=== PATIENT | male | born 1990 | race Caucasian/White ===

== ENCOUNTER 2017-07-11 10:43 | Emergency (ER) | payer SELFPAY ==
--- NOTE | 2017-07-11 10:50 | ED.PDOC ---
History of Present Illness - General Chief Complaint: Abdominal Pain Stated Complaint: right flank pain Time Seen by Provider: 07/11/17 10:49 Source: patient Exam Limitations: no limitations - History of Present Illness Initial Comments: Robin Fan 27 y/o male stated that he had been having right flank pains the last 3 days and got worse today.He was seen 3 x at [place] [facility] in the past for blood in urine initally was diagnosed with prostatitis but later on was told he has kidney stone no urology consult was made.He recently move to [place] to live with mom.Denies dysuria,fever ,chills,Diarrhea ,has regular bm Timing/Duration: 1-3 hours Severity: moderate Improving Factors: nothing Worsening Factors: nothing Associated Symptoms: denies symptoms Allergies/Adverse Reactions: Allergies NO KNOWN ALLERGY Allergy (Unverified 05/11/15 19:19) Home Medications: Ambulatory Orders Naproxen [Naprosyn] 500 mg PO BID #10 tab 07/11/17 Tamsulosin HCl [Flomax] 0.4 mg PO DAILY 07/11/17 Tamsulosin HCl [Flomax] 0.4 mg PO DAILY #5 cap 07/11/17 Tramadol HCl 50 mg PO TID #10 tab 07/11/17 Review of Systems - Review of Systems Constitutional: States: no symptoms reported EENTM: States: no symptoms reported Respiratory: States: no symptoms reported Cardiology: States: no symptoms reported Gastrointestinal/Abdominal: States: see HPI Genitourinary: States: see HPI Past Medical History (General) - Patient Medical History Hx Seizures: No Hx Stroke: No Hx Dementia: No Hx Asthma: No Hx of COPD: No Hx Cardiac Disorders: No Hx Congestive Heart Failure: No Hx Pacemaker: No Hx Hypertension: No Hx Thyroid Disease: No Hx Diabetes: No Hx Gastroesophageal Reflux: No Hx Renal Disease: No Hx Cancer: No Hx of HIV: No Hx MRSA: No Hx Other PMH: Yes - kidney stone Surgical History: no surgical history - Vaccination History Hx Influenza Vaccination: No - Social History Hx Tobacco Use: Yes Hx Alcohol Use: No Hx Substance Use: Yes - quit xanax and marijuana a month ago, meth a week ago and hydrocodone 4 day Hx Substance Use Treatment: No Hx Depression: No Family Medical History - Family History Mother Family History: Unknown Hx Family;Other: DAD-kidney stone Physical Exam - Physical Exam General Appearance: Alert, No apparent distress Eye Exam: bilateral normal Ears, Nose, Throat: hearing grossly normal, normal ENT inspection, normal pharynx Neck: non-tender, full range of motion, supple, normal inspection Respiratory: lungs clear, normal breath sounds Cardiovascular/Chest: normal peripheral pulses, regular rate, rhythm, no murmur Peripheral Pulses: radial,right: 2+, radial,left: 2+ Gastrointestinal/Abdominal: normal bowel sounds, non tender, soft, no organomegaly Back Exam: no CVA tenderness, no vertebral tenderness Extremity: no pedal edema, no calf tenderness Neurologic: alert, normal mood/affect, oriented x 3 Skin Exam: normal color, warm/dry Lymphatic: no adenopathy Progress - Progress Progress: 07/11/17 12:01 Vital Signs - 8 hr 07/11/17 11:00 Temperature 95.5 F L Pulse Rate [ 74 Left Brachial] Respiratory 16 Rate Blood Pressure 126/69 [Left Arm] O2 Sat by Pulse 98 Oximetry - Results/Orders Results/Orders: Laboratory Tests 07/11/17 07/11/17 07/11/17 11:06 11:30 11:30 WBC 14.8 H RBC 4.93 Hgb 13.5 L Hct 40.9 L MCV 82.9 MCH 27.3 MCHC 33.0 RDW 13.3 Plt Count 353 MPV 8.6 Absolute Neuts (auto) Not Reportable Absolute Lymphs (auto) Not Reportable Absolute Monos (auto) Not Reportable Absolute Eos (auto) Not Reportable Neutrophils % Not Reportable Neutrophils % (Manual) 77.0 Lymphocytes % Not Reportable Lymphocytes % (Manual) 19.0 Monocytes % Not Reportable Monocytes % (Manual) 4.0 Eosinophils % Not Reportable Basophils % Not Reportable Band Neutrophils 7.0 Platelet Estimate Normal Normal RBC Morphology Normal rbc morph Sodium 138 Potassium 3.7 Chloride 106 Carbon Dioxide 25 Anion Gap 10.7 L BUN 8 Creatinine 0.82 BUN/Creatinine Ratio 9.8 L Random Glucose 91 Serum Osmolality 273.6 L Calcium 9.1 Total Bilirubin < 0.2 L AST 24 ALT 38 Alkaline Phosphatase 69 Serum Total Protein 7.3 Albumin 3.6 Globulin 3.7 H Albumin/Globulin Ratio 1.0 L Urine Color Yellow Urine Appearance Clear Urine pH 6.0 Ur Specific Cameron 1.010 Urine Protein 30 Urine Glucose (UA) Negative Urine Ketones Negative Urine Blood Large H Urine Nitrite Negative Urine Bilirubin Negative Urine Urobilinogen 0.2 Ur Leukocyte Esterase Small H Urine RBC 20-30 H Urine WBC 5-10 H Ur Epithelial Cells 1-3 Amorphous Sediment 1+ Urine Bacteria 1+ Urine Mucus Moderate - EKG/XRAY/CT CT: bilateral no obstructing nephrolithiasis CT Ordered: Yes - Abd/P-3.5 mm left ureteral stone no obstructing Departure - Departure Clinical Impression: Flank pain, acute, Ureteropelvic junction calculus Hematuria Qualifiers: Hematuria type: gross Qualified Code(s): R31.0 - Gross hematuria Time of Disposition: 13:32 Disposition: Discharge to Home or Self Care Departure Forms: ED Discharge - Pt. Copy, Patient Portal Self Enrollment Instructions: DI for Kidney Stones, Kidney Stones -- Adult Diet: other - need to increase oral fluid intake Prescriptions: Naproxen [Naprosyn] 500 mg PO BID #10 tab Tamsulosin HCl [Flomax] 0.4 mg PO DAILY #5 cap Tramadol HCl 50 mg PO TID #10 tab Home Medications: Ambulatory Orders Naproxen [Naprosyn] 500 mg PO BID #10 tab 07/11/17 Tamsulosin HCl [Flomax] 0.4 mg PO DAILY 07/11/17 Tamsulosin HCl [Flomax] 0.4 mg PO DAILY #5 cap 07/11/17 Tramadol HCl 50 mg PO TID #10 tab 07/11/17 Additional Instructions: NEED TO SIGN UP WITH PRIMARY MD [phone]
[2017-07-11 11:04] VITALS: TEMP 95.5
[2017-07-11] MEDS ORDERED: PROMETHAZINE HCL INJ 25 MG/ML VIAL IM ONE (12:10)
[2017-07-11] MEDS ORDERED: MORPHINE SULFATE INJ 10 MG/ML VIAL IV ONE (12:10)
--- NOTE | 2017-07-11 12:29 | CT ---
EXAM DESCRIPTION: Abdoment/Pelvis w/o Contrast CLINICAL HISTORY: hematuria COMPARISON: None. TECHNIQUE: Noncontrast transaxial CT images of the abdomen and pelvis are obtained using renal stone imaging protocol. This exam was performed according to our departmental dose-optimization program, which includes automated exposure control, adjustment of the mA and/or kV according to patient size and/or use of iterative reconstruction technique . FINDINGS: The noncontrast appearance of the lung bases, liver, spleen, pancreas, adrenal glands, and contracted gallbladder are unremarkable. Abdominal vasculature is unremarkable. There is a 1.5 cm calcification in the right renal pelvis without significant hydronephrosis. Tiny 1 to 2 mm punctate calcifications are seen in the midpole posterior calyces of the right kidney. There is a nonobstructing 6 mm calcification in a lower pole calyx of the left kidney. Mild prominence of the right ureter seen without ureteral calcification. There is minimal dilatation of the left ureter. A 3.5 mm calcification seen at the floor the urinary bladder and distal left ureter. Urinary bladder is otherwise unremarkable. Prostate is unremarkable. The appendix is within normal limits. Contracted stomach, small bowel, and colon are unremarkable. 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 There are nonspecific borderline lymph nodes in the mesenteric fat of the right mid abdomen measuring up to 9 mm short axis. IMPRESSION: Nonobstructing bilateral nephrolithiasis is seen. Largest calculus is seen in the right renal pelvis measuring 1.5 cm. There is a 3.5 mm calcification at the left ureterovesical junction of the urinary bladder with minimal left hydronephrosis. Other findings as described in body of the report. Electronically signed by: Jeb Garnett MD 07/11/2017 12:28 PM CDT
[2017-07-11] MEDS ORDERED: LACTATED RINGERS 1,000 ML IVS ONE (12:48)
[2017-07-11 14:32] VITALS: BP 120/75; O2SAT 99
== END 2017-07-11 14:37 | disposition home or self-care (01) ==
LOC: ER 10:43
DX: N20.1 Calculus of ureter (principal); Z87.891 Personal history of nicotine dependence
CPT/HCPCS: 36415; 74176; 80053; 81001; 85025; 87086; J2270; J2550; J7120

== ENCOUNTER 2018-08-29 15:22 | Emergency (ER) | payer SELFPAY ==
[2018-08-29] MEDS ORDERED: KETOROLAC TROMETHAMINE INJ 60 MG/2 ML VIAL IM ONE (15:44)
--- NOTE | 2018-08-29 15:47 | ED.PDOC ---
History of Present Illness - General Chief Complaint: Abdominal Pain Stated Complaint: Right lower abdominal discomfort Time Seen by Provider: 08/29/18 15:43 Information Source: patient Exam Limitations: no limitations - History of Present Illness Initial Comments: patient comes in with moderately severe right lower quadrant pain that is described as sharp, nonradiating, and worsening. Patient states it started yesterday but has gotten significantly worse. Patient had some nausea but no emesis. Last by mouth intake was directly prior to arrival. He is having normal bowel movements and denies diarrhea. He has never had this before. However, he did have kidney stones last year but states this does not feel like when he had the stones. Patient's had no fever, chills, cough or cold symptoms. His past medical history is only positive for nephrolithiasis. Past surgical history is negative. Patient smokes tobacco half a pack every 3 days and marijuana. Patient does not drink or take other illicit substances. Patient has had no trauma or increased activity prior to onset of pain. It does hurt worse when he moves. Abdominal Pain Onset Location: RLQ Pain Radiation: no radiation Quality: moderate, sharpness Timing/Duration: 24 hours, getting worse Improving Factors: nothing Worsening Factors: movement Associated Symptoms: nausea/vomiting Review of Systems - Review of Systems Constitutional: States: no symptoms reported. Denies: chills, fever EENTM: States: no symptoms reported. Denies: eye pain, ear pain, nose congestion, throat pain Respiratory: States: no symptoms reported. Denies: cough, short of breath Cardiology: States: no symptoms reported. Denies: chest pain, edema, palpitations Gastrointestinal/Abdominal: States: see HPI, abdominal pain, nausea. Denies: constipation, diarrhea, vomiting Genitourinary: States: no symptoms reported. Denies: discharge, dysuria, frequency, hematuria Musculoskeletal: States: no symptoms reported Past Medical History (General) - Patient Medical History Hx Seizures: No Hx Stroke: No Hx Dementia: No Hx Asthma: No Hx of COPD: No Hx Cardiac Disorders: No Hx Congestive Heart Failure: No Hx Pacemaker: No Hx Hypertension: No Hx Thyroid Disease: No Hx Diabetes: No Hx Gastroesophageal Reflux: No Hx Renal Disease: No Hx Cancer: No Hx of HIV: No Hx MRSA: No Hx Other PMH: Yes - Nephrolithiasis - Vaccination History Hx Influenza Vaccination: No - Social History Hx Tobacco Use: Yes Hx Alcohol Use: No Hx Substance Use: Yes - quit xanax and marijuana a month ago, meth a week ago and hydrocodone 4 day Hx Substance Use Treatment: No Hx Depression: No Family Medical History - Family History Mother Family History: Unknown Hx Family;Other: DAD-kidney stone Physical Exam - Physical Exam General Appearance: Alert, No apparent distress Eyes, Ears, Nose, Throat Exam: PERRL/EOMI, normal ENT inspection, TMs normal, pharynx normal Neck: non-tender, full range of motion, supple, normal inspection Respiratory: chest non-tender, lungs clear, normal breath sounds, no respiratory distress Cardiovascular/Chest: normal peripheral pulses, regular rate, rhythm, no edema, no gallop, no JVD, no murmur Peripheral Pulses: No deficit Gastrointestinal/Abdominal: soft, tenderness - TTP RLQ with no rebound no guarding, other - non distended with hypoactive BS Neurologic: alert, oriented x 3 Progress - Progress Progress: 08/29/18 17:13 discussed with patient size of stone and that it will not pass on its own. Will call for transfer for Urology - Results/Orders Results/Orders: Patient Name: BASIL VICTORIA Gender: Male Date of : 1990 Referring Physician: ELAINE HOLT Organization: [facility] Accession Number: [id number] Requested Date: August 29, 2018 15:43 Report Status: Final Requested Procedure: 1 Procedure Description: Abdoment/Pelvis w/o Contrast Modality: CT Findings Reporting MD: Cuba Willoughby Fellow MD: Not available Dictation Time: Knock Out Hand: Not available Network Technical Analyst Date: EXAM DESCRIPTION: Abdoment/Pelvis w/o Contrast CLINICAL HISTORY: 28 years Male, RLQ pain/?appy hx nephrolithiasis COMPARISON: July 11, 2017. TECHNIQUE: Contiguous 3 mm axial images were obtained from the lung bases to the level of proximal femora without the administration of intravenous or oral contrast. Sagittal and coronal reconstructions were reviewed. FINDINGS: Evaluation of the urinary system: Right kidney: A 1.7 cm calcified partially obstructing stone is noted at the ureteropelvic junction with interval change in the position in comparison to prior CT dated July 11, 2017. A second nonobstructing 5 mm intrarenal stone is noted in the upper pole and another punctate 3 mm nonobstructing stone in the interpolar region. Interval development of mild hydronephrosis is noted. Mild hydroureter is also noted along the entire course of the ureter with no evidence of obstructing stones. Mild periureteral stranding is noted surrounding the proximal ureter. No evidence of perinephric fluid collections or stranding. Left kidney: A 7 mm nonobstructing calcified stone at the left ureteropelvic junction with the interval change in the position in comparison to the prior CT. Mild fullness of the ureteropelvic junction with no evidence of hydronephrosis, hydroureter, perinephric stranding or fluid collections. The visualized lower thorax appears grossly unremarkable with no pleural or pericardial effusion. Limited evaluation of the solid abdominal organs due to lack of intravenous contrast. The liver appears grossly unremarkable with no intrahepatic ductal dilatation. The gallbladder is a minimally distended and demonstrates interval development of a small calcified stone within the lumen with no evidence of pericholecystic fluid or fat stranding. The spleen, pancreas and both adrenal glands appear grossly unremarkable. [employer]. [address] [place] [address] T [phone] F [phone] [email or web address] - Report exported on Aug 29, 2018 16:20:48 -0600 - Page 2 of 2 The distal esophagus and the stomach appear grossly unremarkable. The small and large bowel loops appear grossly unremarkable with no abnormal dilatation or wall thickening. Few scattered diverticula are noted throughout the colon with no evidence of acute diverticulitis. The appendix is well-visualized with the no surrounding inflammatory changes. No enlarged abdominal or retroperitoneal lymphadenopathy. No free intraperitoneal air or fluid. The urinary bladder is well-distended and appears grossly unremarkable. The prostate appears grossly unremarkable. No free fluid in the pelvis. Review of the bone windows demonstrate no acute osseous abnormality. IMPRESSION: 1. Persistent large 1.7 cm partially obstructing calcified stone at the right ureteropelvic junction with mild hydronephrosis and mild hydroureter with mild periureteral stranding surrounding the proximal ureter is concerning for an acute obstruction. Interval change in the position of the stone noted within proximal migration in comparison to recent CT dated July 11, 2017. 2. 2 other nonobstructing calcified intrarenal stones are noted in the right kidney measuring up to 5 mm. 3. Again noted is a 7 mm nonobstructing calcified stone at the left ureteropelvic junction with no evidence of hydronephrosis, hydroureter are perinephric stranding. However interval proximal migration of the stone noted in comparison to prior exam. 4. No other acute intra-abdominal process. 5. Cholelithiasis with no evidence of acute cholecystitis. This exam was performed according to our departmental dose-optimization program, which includes automated exposure control, adjustment of the mA and/or kV according to patient size and/or use of iterative reconstruction technique. 08/29/18 15:44 UA [URINALYSIS] Stat 08/29/18 16:21 Sodium Chloride 0.9% 1000ML [Ns 1000 ml] 1,000 ml IVS ONCE Laboratory Results WBC 10.4 K/mm3 (4.8-10.8) 08/29/18 16:11 RBC 4.88 M/mm3 (4.70-6.10) 08/29/18 16:11 Hgb 14.1 gm/dL (14.0-18.0) 08/29/18 16:11 Hct 42.9 % (42.0-52.0) 08/29/18 16:11 MCV 88.0 fl (80.0-94.0) 08/29/18 16:11 MCH 28.9 pg (27.0-31.0) 08/29/18 16:11 MCHC 32.9 g/dL (33.0-37.0) L 08/29/18 16:11 RDW 13.1 % (11.5-14.5) 08/29/18 16:11 Plt Count 280 K/mm3 (130-400) 08/29/18 16:11 MPV 9.5 fl (7.40-10.4) 08/29/18 16:11 Absolute Neuts (auto) 6.60 K/uL (1.8-6.8) 08/29/18 16:11 Absolute Lymphs (auto) 3.00 K/uL (1.0-3.4) 08/29/18 16:11 Absolute Monos (auto) 0.50 K/uL (0.2-0.8) 08/29/18 16:11 Absolute Eos (auto) 0.10 K/uL (0.0-0.4) 08/29/18 16:11 Absolute Basos (auto) 0.10 K/uL (0.0-0.1) 08/29/18 16:11 Neutrophils % 63.8 % (42.0-78.0) 08/29/18 16:11 Lymphocytes % 29.1 % (20.0-50.0) 08/29/18 16:11 Monocytes % 5.2 % (2.0-9.0) 08/29/18 16:11 Eosinophils % 1.3 % (1.0-5.0) 08/29/18 16:11 Basophils % 0.6 % (0.0-2.0) 08/29/18 16:11 Sodium 138 mmol/L (135-145) 08/29/18 16:11 Potassium 3.9 mmol/L (3.6-5.0) 08/29/18 16:11 Chloride 105 mmol/L (101-111) 08/29/18 16:11 Carbon Dioxide 25 mmol/L (21-31) 08/29/18 16:11 Anion Gap 11.9 (12-18) L 08/29/18 16:11 BUN 16 mg/dL (7-18) 08/29/18 16:11 Creatinine 0.82 mg/dL (0.6-1.3) 08/29/18 16:11 BUN/Creatinine Ratio 19.5 (10-20) 08/29/18 16:11 Random Glucose 71 mg/dL (70-105) 08/29/18 16:11 Serum Osmolality 275.3 mOsm/L (275-295) 08/29/18 16:11 Lactic Acid 0.9 mmol/L (0.5-2.2) 08/29/18 16:11 Calcium 9.5 mg/dL (8.4-10.2) 08/29/18 16:11 Total Bilirubin 0.3 mg/dL (0.2-1.0) 08/29/18 16:11 AST 19 IU/L (10-42) 08/29/18 16:11 ALT 29 IU/L (10-60) 08/29/18 16:11 Alkaline Phosphatase 80 IU/L (42-121) 08/29/18 16:11 Serum Total Protein 7.9 gm/dL (6.4-8.2) 08/29/18 16:11 Albumin 4.3 g/dl (3.2-5.5) 08/29/18 16:11 Globulin 3.6 gm/dL (2.3-3.5) H 08/29/18 16:11 Albumin/Globulin Ratio 1.2 (1.1-1.9) 08/29/18 16:11 Amylase 62 U/L (28-100) 08/29/18 16:11 Lipase 21 U/L (22-51) L 08/29/18 16:11 Departure - Departure Clinical Impression: Ureteropelvic junction calculus Disposition: Transfer to Hospital Condition: Fair Departure Forms: ED Discharge - Pt. Copy, Patient Portal Self Enrollment Instructions: DI for Abdominal Pain-Adult Home Medications: Ambulatory Orders Naproxen [Naprosyn] 500 mg PO BID #10 tab 07/11/17 Tamsulosin HCl [Flomax] 0.4 mg PO DAILY 07/11/17 Tamsulosin HCl [Flomax] 0.4 mg PO DAILY #5 cap 07/11/17 Tramadol HCl 50 mg PO TID #10 tab 07/11/17 Transfer to Outside Facility - Transfer Information Accepting Facility: [facility] Reason for Transfer: specialized care not available
[2018-08-29 16:04] VITALS: TEMP 99.2; O2SAT 99
--- NOTE | 2018-08-29 16:17 | CT ---
EXAM DESCRIPTION: Abdoment/Pelvis w/o Contrast CLINICAL HISTORY: 28 years Male, RLQ pain/?appy hx nephrolithiasis COMPARISON: July 11, 2017. TECHNIQUE: Contiguous 3 mm axial images were obtained from the lung bases to the level of proximal femora without the administration of intravenous or oral contrast. Sagittal and coronal reconstructions were reviewed. FINDINGS: Evaluation of the urinary system: Right kidney: A 1.7 cm calcified partially obstructing stone is noted at the ureteropelvic junction with interval change in the position in comparison to prior CT dated July 11, 2017. A second nonobstructing 5 mm intrarenal stone is noted in the upper pole and another punctate 3 mm nonobstructing stone in the interpolar region. Interval development of mild hydronephrosis is noted. Mild hydroureter is also noted along the entire course of the ureter with no evidence of obstructing stones. Mild periureteral stranding is noted surrounding the proximal ureter. No evidence of perinephric fluid collections or stranding. Left kidney: A 7 mm nonobstructing calcified stone at the left ureteropelvic junction with the interval change in the position in comparison to the prior CT. Mild fullness of the ureteropelvic junction with no evidence of hydronephrosis, hydroureter, perinephric stranding or fluid collections. The visualized lower thorax appears grossly unremarkable with no pleural or pericardial effusion. Limited evaluation of the solid abdominal organs due to lack of intravenous contrast. The liver appears grossly unremarkable with no intrahepatic ductal dilatation. The gallbladder is a minimally distended and demonstrates interval development of a small calcified stone within the lumen with no evidence of pericholecystic fluid or fat stranding. The spleen, pancreas and both adrenal glands appear grossly unremarkable. The distal esophagus and the stomach appear grossly unremarkable. The small and large bowel loops appear grossly unremarkable with no abnormal dilatation or wall thickening. Few scattered diverticula are noted throughout the colon with no evidence of acute diverticulitis. The appendix is well-visualized with the no surrounding inflammatory changes. No enlarged abdominal or retroperitoneal lymphadenopathy. No free intraperitoneal air or fluid. The urinary bladder is well-distended and appears grossly unremarkable. The prostate appears grossly unremarkable. No free fluid in the pelvis. Review of the bone windows demonstrate no acute osseous abnormality. IMPRESSION: 1. Persistent large 1.7 cm partially obstructing calcified stone at the right ureteropelvic junction with mild hydronephrosis and mild hydroureter with mild periureteral stranding surrounding the proximal ureter is concerning for an acute obstruction. Interval change in the position of the stone noted within proximal migration in comparison to recent CT dated July 11, 2017. 2. 2 other nonobstructing calcified intrarenal stones are noted in the right kidney measuring up to 5 mm. 3. Again noted is a 7 mm nonobstructing calcified stone at the left ureteropelvic junction with no evidence of hydronephrosis, hydroureter are perinephric stranding. However interval proximal migration of the stone noted in comparison to prior exam. 4. No other acute intra-abdominal process. 5. Cholelithiasis with no evidence of acute cholecystitis. This exam was performed according to our departmental dose-optimization program, which includes automated exposure control, adjustment of the mA and/or kV according to patient size and/or use of iterative reconstruction technique. Electronically signed by: Cuba Willoughby MD 08/29/2018 4:15 PM [employer]
[2018-08-29] MEDS ORDERED: TAMSULOSIN 0.4 MG CAP PO ONE (16:21)
[2018-08-29] MEDS ORDERED: SODIUM CHLORIDE 0.9% 1000ML 1,000 ML IVS ONE (16:21)
[2018-08-29 17:39] VITALS: BP 122/85
== END 2018-08-29 17:45 | disposition short-term general hospital (02) ==
LOC: ER 15:22
DX: N13.2 Hydronephrosis with renal and ureteral calculous obstruction (principal); K80.20 Calculus of gallbladder without cholecystitis without obstruction; F17.210 Nicotine dependence, cigarettes, uncomplicated
CPT/HCPCS: 36415; 74176; 80053; 81001; 82150; 83605; 83690; 85025; J1885; J7030

== ENCOUNTER → 2018-09-05 | Outpatient (CLI) | payer SELFPAY | LOC: YCFC.O 14:46 | DX: N10 Acute pyelonephritis (principal) ==

== ENCOUNTER 2018-09-06 12:12 | Emergency (ER) | payer SELFPAY ==
[2018-09-06 12:23] VITALS: TEMP 97.2
[2018-09-06] MEDS ORDERED: KETOROLAC TROMETHAMINE INJ 30 MG/ML VIAL IM ONE (12:34)
[2018-09-06] MEDS ORDERED: ONDANSETRON ODT 8 MG TAB SL ONE (12:35)
[2018-09-06] MEDS ORDERED: SODIUM CHLORIDE 0.9% 1000ML 1,000 ML IVS ONE (13:21)
[2018-09-06] MEDS ORDERED: cefTRIAXone SODIUM 1 GM in SODIUM CHL 0.9% 50ML MIN-BAG+ 50 ML IVPB ONE (13:28)
--- NOTE | 2018-09-06 13:43 | CT ---
EXAM DESCRIPTION: Abdoment/Pelvis w/o Contrast CLINICAL HISTORY: severe right abd/flank pain s/p ureteral stent 6d COMPARISON: August 29, 2018 TECHNIQUE: Noncontrast transaxial CT images of the abdomen and pelvis are obtained. This exam was performed according to our departmental dose-optimization program, which includes automated exposure control, adjustment of the mA and/or kV according to patient size and/or use of iterative reconstruction technique . FINDINGS: Visualized lung bases are unremarkable. Given the limitations of a noncontrast exam the liver, spleen, pancreas, adrenal glands, gallbladder, and abdominal vasculature are unremarkable. No bowel obstruction or inflammatory changes. The appendix is normal. No free intraperitoneal air or abnormal drainable fluid collections are seen. Interval placement of bilateral ureteral stents are seen. Proximal pigtail component of the left ureteral stent is seen in the proximal ureter. The distal pigtail component of the ureteral stents looped around each other in the urinary bladder. The large calculus in the right renal pelvis seen on previous examination is no longer identified, but there are multiple new fragments in mid to lower pole calyces of the right kidney suggesting fragmentation of the renal pelvis calculus. The calcification in the left renal pelvis seen on previous examination is now identified in a major calyx of the mid to lower pole left kidney without obvious obstruction. Multiple calcifications adjacent to the ureteral stent in the mid right ureter measure 14 x 6 mm. Smaller calcification adjacent to the distal ureteral stent on the right measures 5 mm. No hydronephrosis. No significant calcifications are seen along the left ureteral stent. Urinary bladder is contracted and not well evaluated. No significant hydronephrosis. Osseous structures show no aggressive bony lesions. 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 IMPRESSION: Interval placement of bilateral ureteral stents with presumed lithotripsy and fragmentation of the right renal pelvis calculus. Calcifications are seen in the mid and distal right ureter adjacent to the ureteral stent without evidence of ureteral dilatation or obstruction. Migration of the calcification seen in the left renal pelvis on previous exam and to a mid to lower pole major calyx. Electronically signed by: Jeb Garnett MD 09/06/2018 1:42 PM IRRIGATION WORKER
[2018-09-06] MEDS ORDERED: cefTRIAXone SODIUM 1 GM VIAL ONE (13:49)
[2018-09-06] MEDS ORDERED: SODIUM CHL 0.9% 50ML MIN-BAG+ 50 ML IVPB ONE (13:50)
[2018-09-06] MEDS ORDERED: HYDROcodone 10MG/APAP 325MG 1 EA TAB PO ONE (14:39)
--- NOTE | 2018-09-06 15:22 | ED.PDOC ---
History of Present Illness - General Chief Complaint: Problem Stated Complaint: right groin pain Time Seen by Provider: 09/06/18 12:33 Source: patient Exam Limitations: no limitations - History of Present Illness Initial Comments: the patient is a 28-year-old male presenting to the emergency room secondary to pain from his ureterolithiasis on the right. He is having urinary frequency and pain down into his penis as well as right mid to lower abdominal pain. No fevers. He had bilateral ureteral stents placed approximately [address] Hess in [place]. Pain has been progressively getting a little worse over the last few days. No definite fevers. Vital signs are stable. He is in obvious distress and is throwing up. Timing/Duration: unsure Severity: severe Improving Factors: nothing Worsening Factors: nothing Allergies/Adverse Reactions: Allergies NO KNOWN ALLERGY Allergy (Unverified 05/11/15 19:19) Home Medications: Ambulatory Orders Naproxen [Naprosyn] 500 mg PO BID #10 tab 07/11/17 Tamsulosin HCl [Flomax] 0.4 mg PO DAILY 07/11/17 Tamsulosin HCl [Flomax] 0.4 mg PO DAILY #5 cap 07/11/17 Tramadol HCl 50 mg PO TID #10 tab 07/11/17 Ciprofloxacin [Cipro] 500 mg PO BID #14 tab 09/06/18 Promethazine HCl 25 mg PO Q6H PRN #10 tab 09/06/18 Tramadol HCl 50 mg PO Q4H PRN #20 tab 09/06/18 Review of Systems - Review of Systems Constitutional: States: malaise EENTM: States: no symptoms reported Respiratory: States: no symptoms reported Cardiology: States: no symptoms reported Gastrointestinal/Abdominal: States: abdominal pain, nausea, vomiting Genitourinary: States: dysuria, frequency Musculoskeletal: States: no symptoms reported Skin: States: no symptoms reported Neurological: States: anxiety Endocrine: States: no symptoms reported All other Systems: No Change from Baseline Past Medical History (General) - Patient Medical History Hx Seizures: No Hx Stroke: No Hx Dementia: No Hx Asthma: No Hx of COPD: No Hx Cardiac Disorders: No Hx Congestive Heart Failure: No Hx Pacemaker: No Hx Hypertension: No Hx Thyroid Disease: No Hx Diabetes: No Hx Gastroesophageal Reflux: No Hx Renal Disease: No Hx Cancer: No Hx of HIV: No Hx MRSA: No - Vaccination History Hx Tetanus, Diphtheria Vaccination: No Hx Influenza Vaccination: Yes Hx Pneumococcal Vaccination: No - Social History Hx Tobacco Use: Yes Hx Alcohol Use: No Hx Substance Use: Yes - quit xanax and marijuana a month ago, meth a week ago and hydrocodone 4 day Hx Substance Use Treatment: No Hx Depression: No Family Medical History - Family History Mother Family History: Unknown Hx Family;Other: DAD-kidney stone Physical Exam - Physical Exam General Appearance: Alert, Anxious, Obvious distress Eye Exam: bilateral normal Ears, Nose, Throat: hearing grossly normal, normal ENT inspection, normal pharynx Neck: full range of motion, supple Respiratory: lungs clear, normal breath sounds, no respiratory distress, no accessory muscle use Cardiovascular/Chest: normal peripheral pulses, regular rate, rhythm, no edema Peripheral Pulses: radial,right: 2+, radial,left: 2+, dorsalis pedis,right: 2+, dorsalis pedis,left: 2+ Gastrointestinal/Abdominal: non tender, soft Rectal Exam: deferred Back Exam: normal inspection, no CVA tenderness Extremity: normal range of motion, non-tender, normal inspection, no pedal edema , normal capillary refill Neurologic: clinical staff pharmacist II-XII nml as tested, alert, normal mood/affect, oriented x 3 Skin Exam: normal color Comments: Vital Signs - 24 hr 09/06/18 12:18 Temperature 97.2 F L Pulse Rate [ 87 Right Brachial] Respiratory 20 Rate Blood Pressure 142/78 [Right Arm] O2 Sat by Pulse 98 Oximetry Progress - Progress Progress: 09/06/18 15:22 the patient's 28-year-old male presenting secondary to pain from his right sided ureterolithiasis. He does have stents present. He does have some bacteria on his urinalysis. I did discuss the patient with Dr. Hess who wants to see him tomorrow at 10 AM likely for another procedure. Disc of the CT scan will be sent with the patient to his appointment tomorrow. The patient is to continue his medication started by urology. He is going to be placed on oral ciprofloxacin and he will also be written for tramadol and Phenergan as needed. ER warnings were given. He did receive a liter of fluids and a dose of antibiotics here today. - Results/Orders Results/Orders: Laboratory Tests 09/06/18 09/06/18 09/06/18 12:50 13:40 13:40 WBC 9.7 RBC 4.92 Hgb 14.3 Hct 43.8 MCV 89.1 MCH 29.1 MCHC 32.6 L RDW 13.3 Plt Count 317 MPV 10.0 Absolute Neuts (auto) 7.10 H Absolute Lymphs (auto) 1.70 Absolute Monos (auto) 0.40 Absolute Eos (auto) 0.30 Absolute Basos (auto) 0.10 Neutrophils % 73.9 Lymphocytes % 18.0 L Monocytes % 3.7 Eosinophils % 3.6 Basophils % 0.8 Sodium 135 Potassium 4.8 Chloride 106 Carbon Dioxide 24 Anion Gap 9.8 L BUN 11 Creatinine 0.93 BUN/Creatinine Ratio 11.8 Random Glucose 92 Serum Osmolality 269.1 L Calcium 9.3 Total Bilirubin 0.4 AST 20 ALT 21 Alkaline Phosphatase 77 Serum Total Protein 8.0 Albumin 4.2 Globulin 3.8 H Albumin/Globulin Ratio 1.1 Urine Color Brown Urine Appearance Cloudy Urine pH 6.0 Ur Specific [place] >= 1.030 Urine Protein >=300 H Urine Glucose (UA) Negative Urine Ketones Negative Urine Blood Large H Urine Nitrite Negative Urine Bilirubin Small H Urine Urobilinogen 0.2 Ur Leukocyte Esterase Small H Urine RBC Tntc H Urine WBC Obscured by rbc's H Ur Epithelial Cells 0 Urine Bacteria 2+ H CT scan of abdomen and pelvis without contrast shows debris proximal to the stents on the right. No hydronephrosis. See report for full details. Departure - Departure Clinical Impression: Calcium ureterolithiasis Disposition: Discharge to Home or Self Care Condition: Fair Departure Forms: ED Discharge - Pt. Copy, Patient Portal Self Enrollment Instructions: DI for Kidney Stones Diet: regular diet Activity: increase activity as tolerated Prescriptions: Ciprofloxacin [Cipro] 500 mg PO BID #14 tab Promethazine HCl 25 mg PO Q6H PRN #10 tab PRN Reason: Vomiting Tramadol HCl 50 mg PO Q4H PRN #20 tab PRN Reason: Moderate To Severe Pain Home Medications: Ambulatory Orders Naproxen [Naprosyn] 500 mg PO BID #10 tab 07/11/17 Tamsulosin HCl [Flomax] 0.4 mg PO DAILY 07/11/17 Tamsulosin HCl [Flomax] 0.4 mg PO DAILY #5 cap 07/11/17 Tramadol HCl 50 mg PO TID #10 tab 07/11/17 Ciprofloxacin [Cipro] 500 mg PO BID #14 tab 09/06/18 Promethazine HCl 25 mg PO Q6H PRN #10 tab 09/06/18 Tramadol HCl 50 mg PO Q4H PRN #20 tab 09/06/18 Additional Instructions: the patient's 28-year-old male presenting secondary to pain from his right sided ureterolithiasis. He does have stents present. He does have some bacteria on his urinalysis. I did discuss the patient with Dr. Hess who wants to see him tomorrow at 10 AM likely for another procedure. Disc of the CT scan will be sent with the patient to his appointment tomorrow. The patient is to continue his medication started by urology. He is going to be placed on oral ciprofloxacin and he will also be written for tramadol and Phenergan as needed. ER warnings were given. He did receive a liter of fluids and a dose of antibiotics here today. the patient is to have nothing to eat after midnight and nothing to drink after 6 AM, in case a procedure is going to happen later tomorrow morning.
[2018-09-06 15:41] VITALS: BP 135/75; O2SAT 96
== END 2018-09-06 15:35 | disposition home or self-care (01) ==
LOC: ER 12:12
DX: N20.1 Calculus of ureter (principal); R11.10 Vomiting, unspecified; Z87.891 Personal history of nicotine dependence
CPT/HCPCS: 36415; 74176; 80053; 81001; 85025; 87086; J0696; J1885; J7030; J7050

== ENCOUNTER 2018-09-09 22:21 | Emergency (ER) | payer SELFPAY ==
[2018-09-09 22:34] VITALS: TEMP 98.8
[2018-09-09] MEDS: MORPHINE SULFATE INJ 10 MG/ML VIAL IM ONE (22:34)
[2018-09-09] MEDS: diazePAM 2 MG TAB PO ONE (22:42)
[2018-09-09] MEDS: ONDANSETRON ODT 8 MG TAB SL ONE (22:49)
[2018-09-09] MEDS: KETOROLAC TROMETHAMINE INJ 30 MG/ML VIAL IM ONE (23:04)
[2018-09-09] MEDS: HYDROcodone 10MG/APAP 325MG 1 EA TAB PO ONE (23:04)
[2018-09-09 23:29] VITALS: BP 112/58; O2SAT 99
--- NOTE | 2018-09-09 23:53 | ED.PDOC ---
History of Present Illness - General Chief Complaint: Problem Stated Complaint: right flank pain, S/P stent placement Time Seen by Provider: 09/09/18 22:26 Source: patient - History of Present Illness Initial Comments: the patient is a 28-year-old male presenting back to the emergency room the third time this week secondary to his right flank pain. He has bilateral ureteral stents but the stone that was busted up on the right side has not completely passed. He is scheduled with Dr. Hess, neurology and 36 hours to have another procedure. The medications that he has at home was just not cutting it for the pain. He has had a couple of episodes of nausea and vomiting. He is rating the pain as 10 out of 10. No fever. No evidence of any renal failure. He saw his urologist 2 days ago. Timing/Duration: 1 week, constant, getting worse Severity: severe Improving Factors: nothing Worsening Factors: nothing Associated Symptoms: nausea/vomiting Allergies/Adverse Reactions: Allergies NO KNOWN ALLERGY Allergy (Verified 09/09/18 22:29) Home Medications: Ambulatory Orders Naproxen [Naprosyn] 500 mg PO BID #10 tab 07/11/17 Tamsulosin HCl [Flomax] 0.4 mg PO DAILY #5 cap 07/11/17 Tramadol HCl 50 mg PO Q4H PRN #20 tab 09/06/18 Review of Systems - Review of Systems Constitutional: States: no symptoms reported EENTM: States: no symptoms reported Respiratory: States: no symptoms reported Cardiology: States: no symptoms reported Gastrointestinal/Abdominal: States: nausea Genitourinary: States: no symptoms reported Musculoskeletal: States: back pain Skin: States: no symptoms reported Neurological: States: no symptoms reported Endocrine: States: no symptoms reported All other Systems: No Change from Baseline Past Medical History (General) - Patient Medical History Hx Seizures: No Hx Stroke: No Hx Dementia: No Hx Asthma: No Hx of COPD: No Hx Cardiac Disorders: No Hx Congestive Heart Failure: No Hx Pacemaker: No Hx Hypertension: No Hx Thyroid Disease: No Hx Diabetes: No Hx Gastroesophageal Reflux: No Hx Renal Disease: Yes - kidney stones Hx Cancer: No Hx of HIV: No Hx Hepatitis C: No Hx MRSA: No - Vaccination History Hx Tetanus, Diphtheria Vaccination: No Hx Influenza Vaccination: Yes Hx Pneumococcal Vaccination: No - Social History Hx Tobacco Use: Yes Hx Alcohol Use: No Hx Substance Use: Yes - quit xanax and marijuana a month ago, meth a week ago and hydrocodone 4 day Hx Substance Use Treatment: No Hx Depression: No Family Medical History - Family History Mother Family History: Unknown Hx Family;Other: DAD-kidney stone Physical Exam - Physical Exam General Appearance: Alert, Obvious distress Eye Exam: bilateral normal Ears, Nose, Throat: hearing grossly normal, normal ENT inspection, normal pharynx Neck: full range of motion, supple Respiratory: lungs clear, normal breath sounds, no respiratory distress, no accessory muscle use Cardiovascular/Chest: normal peripheral pulses, regular rate, rhythm, no edema Peripheral Pulses: radial,right: 2+, radial,left: 2+ Gastrointestinal/Abdominal: non tender, soft Rectal Exam: deferred Back Exam: CVA tenderness (R) Extremity: non-tender, normal inspection, no pedal edema, normal capillary refill Neurologic: property maintenance technician II-XII nml as tested, alert, normal mood/affect, oriented x 3 Skin Exam: normal color Comments: Vital Signs - 24 hr 09/09/18 09/09/18 22:26 23:28 Temperature 98.8 F Pulse Rate [ 97 H 93 H monitor] Respiratory 20 18 Rate Blood Pressure 137/73 112/58 [Left Arm] O2 Sat by Pulse 100 99 Oximetry Progress - Progress Progress: 09/09/18 23:53 the patient is a 28-year-old male with ureteral stents and as well as some debris from a previous stone proximal to the stents on the right. This is causing him significant discomfort. He is scheduled with urology on Monday to have another procedure on that side. He received pain medications here tonight. He does need to contact his urologist tomorrow morning to let him know what is going on. ER warnings were given. Departure - Departure Clinical Impression: Calcium ureterolithiasis Disposition: Discharge to Home or Self Care Condition: Fair Departure Forms: ED Discharge - Pt. Copy, Patient Portal Self Enrollment Instructions: DI for Kidney Stones Diet: regular diet Activity: increase activity as tolerated Home Medications: Ambulatory Orders Naproxen [Naprosyn] 500 mg PO BID #10 tab 07/11/17 Tamsulosin HCl [Flomax] 0.4 mg PO DAILY #5 cap 07/11/17 Tramadol HCl 50 mg PO Q4H PRN #20 tab 12/06/18 Additional Instructions: the patient is a 28-year-old male with ureteral stents and as well as some debris from a previous stone proximal to the stents on the right. This is causing him significant discomfort. He is scheduled with urology on Monday to have another procedure on that side. He received pain medications here tonight. He does need to contact his urologist tomorrow morning to let him know what is going on. ER warnings were given.
== END 2018-09-10 00:05 | disposition home or self-care (01) ==
LOC: ER 22:21
DX: N20.1 Calculus of ureter (principal); Z98.890 Other specified postprocedural states; Z87.891 Personal history of nicotine dependence
CPT/HCPCS: J1885; J2270

== ENCOUNTER 2018-09-11 03:24 | Emergency (ER) | payer SELFPAY ==
--- NOTE | 2018-09-11 03:56 | ED.PDOC ---
History of Present Illness - General Chief Complaint: Problem Stated Complaint: right flank pain Time Seen by Provider: 09/11/18 03:42 Source: patient Exam Limitations: no limitations - History of Present Illness Initial Comments: Robin Fan 28 y/o male with history of right ureterolithiasis stated that he had ureteral stent placed 8 days ago by Urologist Dr. Hess and was scheduled for removal today 11 Sep 2018 at 12 noon but came to ER with onset of sharp right flank pain radiating to right groin with hematuria 1-2 hours ago.No fever or chills. Timing/Duration: just prior to arrival Quality: moderate, sharpness, steady Radiation: right flank Activites at Onset: none Sexual intercourse history: other - none recently Improving Factors: nothing Worsening Factors: nothing Associated Symptoms: other - see hpi Allergies/Adverse Reactions: Allergies NO KNOWN ALLERGY Allergy (Verified 09/11/18 03:36) Home Medications: Ambulatory Orders Antibiotic 1 tablet PO DAILY 09/11/18 Blue Pill 1 tablet PO DAILY 09/11/18 Purple Pill 1 tablet PO DAILY 09/11/18 Review of Systems - Review of Systems Genitourinary: States: see HPI, hematuria All other Systems: Reviewed and Negative, No Change from Baseline Past Medical History (General) - Patient Medical History Hx Seizures: No Hx Stroke: No Hx Dementia: No Hx Asthma: No Hx of COPD: No Hx Cardiac Disorders: No Hx Congestive Heart Failure: No Hx Pacemaker: No Hx Hypertension: No Hx Thyroid Disease: No Hx Diabetes: No Hx Gastroesophageal Reflux: No Hx Renal Disease: Yes - kidney stones, stent placement Hx Cancer: No Hx of HIV: No Hx Hepatitis C: No Hx MRSA: No - Vaccination History Hx Tetanus, Diphtheria Vaccination: No Hx Influenza Vaccination: Yes Hx Pneumococcal Vaccination: No - Social History Hx Tobacco Use: Yes Hx Alcohol Use: No Hx Substance Use: Yes - quit xanax and marijuana a month ago, meth a week ago and hydrocodone 4 day Hx Substance Use Treatment: No Hx Depression: No Family Medical History - Family History Mother Family History: Unknown Hx Family;Other: DAD-kidney stone Physical Exam - Physical Exam General Appearance: Alert, Anxious, No apparent distress Eyes, Ears, Nose, Throat Exam: normal ENT inspection Neck: supple, normal inspection Cardiovascular/Respiratory: regular rate, rhythm, no M/R/G, normal peripheral pulses, no JVD Gastrointestinal/Abdominal: non tender, soft Back Exam: normal inspection, no CVA tenderness, no vertebral tenderness Extremity: no pedal edema, no calf tenderness Neurologic: alert, oriented x 3 Progress - Progress Progress: 09/11/18 03:59 Vital Signs - 8 hr 09/11/18 03:27 Temperature 98.1 F Pulse Rate [ 85 monitor] Respiratory 20 Rate Blood Pressure 154/81 [Right Arm] O2 Sat by Pulse 100 Oximetry - Results/Orders Results/Orders: 09/11/18 04:00 IV Care:Saline Lock per Protoc QSHIFT Laboratory Results - last 24 hr 09/11/18 09/11/18 04:00 04:00 WBC 7.1 RBC 4.25 L Hgb 12.4 L Hct 37.6 L MCV 88.6 MCH 29.1 MCHC 33.0 RDW 13.3 Plt Count 251 MPV 9.9 Absolute Neuts (auto) 4.30 Absolute Lymphs (auto) 1.70 Absolute Monos (auto) 0.50 Absolute Eos (auto) 0.60 H Absolute Basos (auto) 0.10 Neutrophils % 59.6 Lymphocytes % 23.5 Monocytes % 7.0 Eosinophils % 9.1 H Basophils % 0.8 Sodium 138 Potassium 4.0 Chloride 109 Carbon Dioxide 24 Anion Gap 9.0 L BUN 18 Creatinine 0.85 BUN/Creatinine Ratio 21.2 H Random Glucose 94 Serum Osmolality 277.3 Calcium 8.6 Discuss test result with patient and advised to keep his scheduled appoint with Urologist today. Departure - Departure Clinical Impression: Flank pain, Nephrolithiasis, History of ureter stent Time of Disposition: 05:08 Disposition: Discharge to Home or Self Care Departure Forms: ED Discharge - Pt. Copy, Patient Portal Self Enrollment Home Medications: Ambulatory Orders Antibiotic 1 tablet PO DAILY 09/11/18 Blue Pill 1 tablet PO DAILY 09/11/18 Purple Pill 1 tablet PO DAILY 09/11/18 Additional Instructions: Keep appointment with Urologist Dr. Hess today at 12 N
[2018-09-11] MEDS ORDERED: LACTATED RINGERS 1,000 ML IVS ONE (04:00)
[2018-09-11] MEDS ORDERED: KETOROLAC TROMETHAMINE INJ 30 MG/ML VIAL IV ONE (04:00)
[2018-09-11] MEDS ORDERED: MORPHINE SULFATE INJ 10 MG/ML VIAL IV ONE (04:00)
[2018-09-11] MEDS ORDERED: PROCHLORPERAZINE INJ 10 MG/2 ML VIAL IV ONE (04:00)
--- NOTE | 2018-09-11 04:23 | RAD ---
ABDOMEN, SINGLE VIEW. 09/11/2018 CLINICAL HISTORY: Status post bilateral ureteral stent placement for renal stones. COMPARISON: CT abdomen and pelvis without contrast 09/06/2018. TECHNIQUE: Two AP images of the abdomen. FINDINGS: There are bilateral ureteral stents. The proximal end of the both stents is in the expected position of the right and left renal pelvis. The distal end of both stents appears to be in the region of the bladder within the pelvis. There is no calcification seen within the region of the left kidney or pelvis. There are two faint calcific densities in the region of the right kidney measuring up to 1.1 cm consistent with known nephrolithiasis. Bowel gas pattern throughout the abdomen appears normal. There is no large-volume free air. Unremarkable bony structures. Normal soft tissues. IMPRESSION: 1. Appropriate position of the right and left ureteral stent. At least two right nephroliths are identified measuring up to 1.1 cm. No renal calculus seen within the region of the left kidney or gallbladder. Electronically signed by: Ermelinda Fuller DO 09/11/2018 4:22 AM FIRE CODE INSPECTOR
[2018-09-11 05:21] VITALS: BP 105/67; TEMP 97.1; O2SAT 98
== END 2018-09-11 05:20 | disposition home or self-care (01) ==
LOC: ER 03:24
DX: N20.0 Calculus of kidney (principal); Z98.890 Other specified postprocedural states; Z87.891 Personal history of nicotine dependence; Z79.899 Other long term (current) drug therapy
CPT/HCPCS: 74018; 80048; 85025; J0780; J1885; J2270; J7120

== ENCOUNTER 2018-09-15 09:16 | Emergency (ER) | payer SELFPAY ==
[2018-09-15 09:27] VITALS: TEMP 97.4
--- NOTE | 2018-09-15 09:28 | ED.PDOC ---
History of Present Illness - General Chief Complaint: Problem Stated Complaint: left flank pain,blood in urine Time Seen by Provider: 09/15/18 09:25 Source: patient Exam Limitations: no limitations - History of Present Illness Initial Comments: Robin Fan 28 y/o male came to ER with blood in urine after lithotripsy and ureteral stent placement 4 days ago.Also with dull left flank pain.No N/V. Timing/Duration: 4-6 hours, constant Severity: moderate Improving Factors: nothing Worsening Factors: nothing Associated Symptoms: other - see hpi Allergies/Adverse Reactions: Allergies NO KNOWN ALLERGY Allergy (Verified 09/11/18 03:36) Home Medications: Ambulatory Orders Acetamin W/Cod #3 Tab [Tylenol w/CODEINE #3] 1 ea PO TID PRN #7 tab 09/15/18 Acetaminophen W/ Codeine [Tylenol W/ CODEINE #3] 1 ea PO PRN 09/15/18 Ciprofloxacin [Cipro] 500 mg PO BID 10 Days #20 tab 09/15/18 Docusate Sodium [Stool Softener] 100 mg PO DAILY 09/15/18 Oxybutynin Chloride 09/15/18 Phenazopyridine HCl [Pyridium] 200 mg PO PRN 09/15/18 Tamsulosin HCl [Flomax] 0.4 mg PO DAILY 09/15/18 Review of Systems - Review of Systems Genitourinary: States: see HPI All other Systems: Reviewed and Negative, No Change from Baseline Past Medical History (General) - Patient Medical History Hx Seizures: No Hx Stroke: No Hx Dementia: No Hx Asthma: No Hx of COPD: No Hx Cardiac Disorders: No Hx Congestive Heart Failure: No Hx Pacemaker: No Hx Hypertension: No Hx Thyroid Disease: No Hx Diabetes: No Hx Gastroesophageal Reflux: No Hx Renal Disease: Yes - kidney stones, stent placement Hx Cancer: No Hx of HIV: No Hx Hepatitis C: No Hx MRSA: No Surgical History: other - lithotripsy - Vaccination History Hx Tetanus, Diphtheria Vaccination: No Hx Influenza Vaccination: Yes Hx Pneumococcal Vaccination: No - Social History Hx Tobacco Use: Yes Hx Alcohol Use: No Hx Substance Use: Yes - quit xanax and marijuana a month ago, meth a week ago and hydrocodone 4 day Hx Substance Use Treatment: No Hx Depression: No Hx Physical Abuse: No Hx Emotional Abuse: No Family Medical History - Family History Mother Family History: Unknown Hx Family;Other: DAD-kidney stone Physical Exam - Physical Exam General Appearance: Alert, Anxious, No apparent distress Eye Exam: bilateral normal Ears, Nose, Throat: hearing grossly normal, normal ENT inspection Neck: non-tender, supple, normal inspection Respiratory: chest non-tender, lungs clear, normal breath sounds Cardiovascular/Chest: normal peripheral pulses, regular rate, rhythm, no murmur Gastrointestinal/Abdominal: non tender, soft Back Exam: no CVA tenderness, no vertebral tenderness Extremity: no pedal edema, no calf tenderness Neurologic: alert, oriented x 3 Skin Exam: normal color, warm/dry Progress - Progress Progress: 09/15/18 09:31 Vital Signs - 8 hr 09/15/18 09:23 Temperature 97.4 F L Pulse Rate [ 108 H Left Ulnar] Respiratory 20 Rate Blood Pressure 144/88 [Left Arm] O2 Sat by Pulse 96 Oximetry - Results/Orders Results/Orders: 09/15/18 09:45 URINE CULTURE W/COLONY COUNT Stat Laboratory Results - last 24 hr 09/15/18 09/15/18 09/15/18 09:41 09:41 09:45 WBC 8.9 RBC 4.52 L Hgb 13.0 L Hct 39.7 L MCV 87.7 MCH 28.7 MCHC 32.7 L RDW 13.1 Plt Count 308 MPV 9.0 Absolute Neuts (auto) 5.80 Absolute Lymphs (auto) 2.30 Absolute Monos (auto) 0.50 Absolute Eos (auto) 0.30 Absolute Basos (auto) 0.10 Neutrophils % 64.7 Lymphocytes % 25.2 Monocytes % 6.1 Eosinophils % 3.4 Basophils % 0.6 Sodium 138 Potassium 3.8 Chloride 106 Carbon Dioxide 24 Anion Gap 11.8 L BUN 16 Creatinine 1.10 BUN/Creatinine Ratio 14.5 Random Glucose 94 Serum Osmolality 276.6 Calcium 9.2 Urine Color Red Urine Appearance Cloudy Urine pH 7.0 Ur Specific [place] 1.025 Urine Protein >=300 H Urine Glucose (UA) Negative Urine Ketones Negative Urine Blood Large H Urine Nitrite Positive H Urine Bilirubin Moderate Urine Urobilinogen 1.0 Ur Leukocyte Esterase Large H Urine RBC Tntc H Urine WBC Obscured by rbc's H Ur Epithelial Cells 0 Urine Bacteria Obscured by rbc's H - EKG/XRAY/CT CT Ordered: Yes - Ct abd/p-significant clearance of stone Departure - Departure Clinical Impression: Acute left flank pain, Status post laser lithotripsy of ureteral calculus, S/P ureteral stent placement Time of Disposition: 11:01 Disposition: Discharge to Home or Self Care Condition: Fair Departure Forms: ED Discharge - Pt. Copy, Patient Portal Self Enrollment Diet: other - DRINK EXTRA FLUIDS Prescriptions: Acetamin W/Cod #3 Tab [Tylenol w/CODEINE #3] 1 ea PO TID PRN #7 tab PRN Reason: Pain Ciprofloxacin [Cipro] 500 mg PO BID 10 Days #20 tab Home Medications: Ambulatory Orders Acetamin W/Cod #3 Tab [Tylenol w/CODEINE #3] 1 ea PO TID PRN #7 tab 09/15/18 Acetaminophen W/ Codeine [Tylenol W/ CODEINE #3] 1 ea PO PRN 09/15/18 Ciprofloxacin [Cipro] 500 mg PO BID 10 Days #20 tab 09/15/18 Docusate Sodium [Stool Softener] 100 mg PO DAILY 09/15/18 Oxybutynin Chloride 09/15/18 Phenazopyridine HCl [Pyridium] 200 mg PO PRN 09/15/18 Tamsulosin HCl [Flomax] 0.4 mg PO DAILY 09/15/18 Additional Instructions: Follow up with Henri Hess-Urologist 17 September 2018-;May take also Aleve (over the counter)1-2 tablets am/pm for pain
[2018-09-15] MEDS ORDERED: LACTATED RINGERS 1,000 ML IVS ONE (09:32)
[2018-09-15] MEDS ORDERED: MORPHINE SULFATE INJ 10 MG/ML VIAL IV ONE (09:32)
[2018-09-15] MEDS ORDERED: TAMSULOSIN 0.4 MG CAP PO ONE (09:32)
[2018-09-15] MEDS ORDERED: KETOROLAC TROMETHAMINE INJ 30 MG/ML VIAL IV ONE (09:32)
[2018-09-15] MEDS ORDERED: PROCHLORPERAZINE INJ 10 MG/2 ML VIAL IV ONE (09:32)
--- NOTE | 2018-09-15 10:45 | CT ---
EXAM DESCRIPTION: Abdoment/Pelvis w/o Contrast CLINICAL HISTORY: 28 years Male gross hematuria; space flank pain COMPARISON: The TECHNIQUE: Contiguous axial images were obtained through the abdomen and pelvis following the administration of intravenous contrast and/or oral contrast. Coronal and sagittal reconstructions are also obtained and reviewed. This exam was performed according to our departmental dose-optimization program, which includes automated exposure control, adjustment of the mA and/or kV according to patient size and/or use of iterative reconstruction technique. FINDINGS: LUNG BASES: HEART: Unremarkable. There is no cardiomegaly. LUNGS: Minimal groundglass opacity in the lung bases may reflect hypoventilation without gross consolidation. PLEURAL SPACES: There is no evidence of pleural fluid or pneumothorax . ABDOMEN: LIVER: Normal in size and configuration. There are no significant focal defects. There is no evidence of biliary ductal dilatation. GALLBLADDER AND BILE DUCTS: Unremarkable. There is no evidence of calculi or pericholecystic inflammatory changes. There is no biliary ductal dilatation. PANCREAS: Unremarkable. No ductal dilatation, inflammatory changes or mass. SPLEEN: The spleen is mildly enlarged, measuring 1.5 cm AP, and lateral. Impression new. [] splenomegaly. Differential considerations include portal hypertension, infectious/inflammatory conditions, hematologic diseases such as anemias and extra medullary hematopoiesis, neoplasia, storage diseases and sequestration. Portal or splenic vein thrombosis also in the differential, although not present in this case. ADRENALS: Unremarkable. No mass or calcification. KIDNEYS AND URETERS: Bilateral double-J ureteral stents remain in place with the proximal loop on the left now more proximally positioned and terminating in the upper pole infundibulum/calyx. The distal loop of the left double-J ureteral stent has been pulled back and now resides across the ureterovesical junction. The previously demonstrated large calculus fragments status post lithotripsy in the right renal pelvis have nearly completely cleared with the exception of a couple tiny remaining calculus fragments in the lower pole. Previously demonstrated calculus fragment in the lower pole of the left kidney is also no longer evident with only a couple of very tiny calculus fragments remaining status post lithotripsy. The previously demonstrated calculus fragments along the course of the right ureter have also largely cleared with the exception of a single very tiny calculus just proximal to the ureterovesical junction. However, in the interim, there has been the development of mild bilateral pelvocaliectases as well as some segmental ureterectases. DISTAL ESOPHAGUS, STOMACH AND BOWEL: The distal esophagus is unremarkable. The stomach is unremarkable. The small bowel is unremarkable. The colon is unremarkable. The rectum is unremarkable. No evidence of intestinal obstruction or inflammatory changes. PELVIS: APPENDIX: Present and appears normal with no findings to suggest acute appendicitis. BLADDER: Unremarkable, allowing for the degree of distention. There is no evidence of cystolithiasis or bladder mass. REPRODUCTIVE: The prostate and seminal vesicles are unremarkable. ABDOMEN and PELVIS: INTRAPERITONEAL SPACE: Unremarkable. No free air or free fluid. No significant focal fluid collection. BONES AND JOINTS: There are no discernible acute fractures or areas of osseous destruction or blastic change. SOFT TISSUES: Unremarkable. VASCULATURE: Unremarkable. No abdominal aortic aneurysm. LYMPH NODES: Unremarkable. There is no evidence of mesenteric, retroperitoneal, pelvic or inguinal adenopathy. IMPRESSION: Significant clearance of calculus fragments from the kidneys and ureters bilaterally as described with very tiny calculus fragments persisting in the lower poles and along the very distal right ureter, status post prior lithotripsy. However, there has been the development of mild bilateral pelvocaliectases and bilateral segmental ureterectases in the interim which could indicate some partial obstruction of the ureteral stents. Moreover, the left ureteral stent distal loop has been pulled back and resides across the left ureterovesical junction. Mild splenomegaly Remainder of findings as described above. Electronically signed by: Shirley Kruse MD 09/15/2018 10:43 AM [facility]
[2018-09-15 11:17] VITALS: BP 127/81; O2SAT 99
== END 2018-09-15 11:17 | disposition home or self-care (01) ==
LOC: ER 09:16
DX: R10.9 Unspecified abdominal pain (principal); Z98.890 Other specified postprocedural states; Z87.442 Personal history of urinary calculi; Z87.891 Personal history of nicotine dependence
CPT/HCPCS: 36415; 74176; 80048; 81001; 85025; 87086; J0780; J1885; J2270; J7120

== ENCOUNTER 2018-09-19 17:14 | Emergency (ER) | payer SELFPAY ==
[2018-09-19 17:24] VITALS: BP 149/88; TEMP 97.4; O2SAT 99
[2018-09-19] MEDS ORDERED: TAMSULOSIN 0.4 MG CAP PO ONE (17:32)
[2018-09-19] MEDS ORDERED: PROMETHAZINE HCL 25 MG TAB PO ONE (17:32)
[2018-09-19] MEDS ORDERED: HYDROcodone 10MG/APAP 325MG 1 EA TAB PO ONE (17:32)
--- NOTE | 2018-09-19 17:36 | ED.PDOC ---
History of Present Illness - General Chief Complaint: Problem Stated Complaint: left flank pain Time Seen by Provider: 09/19/18 17:25 Source: patient Exam Limitations: no limitations - History of Present Illness Initial Comments: the patient's a 28-year-old male presenting to the emergency room secondary to left flank pain that started about 2 hours after he had his ureteral stents removed. He has had some nausea associated with it. No fevers. He has been taking Toradol without eating. Timing/Duration: 4-6 hours Severity: moderate Improving Factors: nothing Worsening Factors: nothing Associated Symptoms: denies symptoms Allergies/Adverse Reactions: Allergies NO KNOWN ALLERGY Allergy (Verified 09/11/18 03:36) Home Medications: Ambulatory Orders Docusate Sodium [Stool Softener] 100 mg PO DAILY 09/15/18 Oxybutynin Chloride 09/15/18 Phenazopyridine HCl [Pyridium] 200 mg PO PRN 09/15/18 Tamsulosin HCl [Flomax] 0.4 mg PO DAILY 09/15/18 Ketorolac Tromethamine [Toradol Tabs] 10 mg PO PRN 09/19/18 Ondansetron [Zofran Odt] 4 mg PO Q4H PRN #10 tab 09/19/18 Review of Systems - Review of Systems Constitutional: States: no symptoms reported EENTM: States: no symptoms reported Respiratory: States: no symptoms reported Cardiology: States: no symptoms reported Gastrointestinal/Abdominal: States: nausea, vomiting Genitourinary: States: no symptoms reported Musculoskeletal: States: back pain Skin: States: no symptoms reported Neurological: States: no symptoms reported Endocrine: States: no symptoms reported All other Systems: No Change from Baseline Past Medical History (General) - Patient Medical History Hx Seizures: No Hx Stroke: No Hx Dementia: No Hx Asthma: No Hx of COPD: No Hx Cardiac Disorders: No Hx Congestive Heart Failure: No Hx Pacemaker: No Hx Hypertension: No Hx Thyroid Disease: No Hx Diabetes: No Hx Gastroesophageal Reflux: No Hx Renal Disease: Yes - kidney stones, stent placement Hx Cancer: No Hx of HIV: No Hx Hepatitis C: No Hx MRSA: No - Vaccination History Hx Tetanus, Diphtheria Vaccination: No Hx Influenza Vaccination: Yes Hx Pneumococcal Vaccination: No - Social History Hx Tobacco Use: Yes Hx Alcohol Use: No Hx Substance Use: Yes - quit xanax and marijuana a month ago, meth a week ago and hydrocodone 4 day Hx Substance Use Treatment: No Hx Depression: No Hx Physical Abuse: No Hx Emotional Abuse: No Family Medical History - Family History Mother Family History: Unknown Hx Family;Other: DAD-kidney stone Physical Exam - Physical Exam General Appearance: Alert, No apparent distress Eye Exam: bilateral normal Ears, Nose, Throat: hearing grossly normal Neck: full range of motion Respiratory: no respiratory distress, no accessory muscle use Cardiovascular/Chest: normal peripheral pulses, no edema Peripheral Pulses: radial,right: 2+, radial,left: 2+ Gastrointestinal/Abdominal: other - obese Back Exam: other Extremity: normal range of motion, normal inspection, normal capillary refill Neurologic: pocket closer II-XII nml as tested, alert, normal mood/affect, oriented x 3 Skin Exam: normal color Comments: Vital Signs - 24 hr 09/19/18 17:20 Temperature 97.4 F L Pulse Rate [ 96 H Left Brachial] Respiratory 20 Rate Blood Pressure 149/88 [Left Arm] O2 Sat by Pulse 99 Oximetry Progress - Progress Progress: 09/19/18 17:34 the patient is a 28-year-old male presenting to the emergency room after having had his ureteral stents pulled today. He is having pain primarily on the left. This most likely represents post procedural ureteral spasm. The patient was given doses of pain medications. He does need to increase his fluid intake. He also needs to eat food when he takes his Toradol. He'll be written for Zofran for as needed use for any further nausea. ER warnings were given. Keep follow-up with urology and his primary care doctor. Departure - Departure Clinical Impression: Ureteritis Disposition: Discharge to Home or Self Care Condition: Fair Departure Forms: ED Discharge - Pt. Copy, Patient Portal Self Enrollment Instructions: DI for Kidney Stones Diet: regular diet Activity: increase activity as tolerated Prescriptions: Ondansetron [Zofran Odt] 4 mg PO Q4H PRN #10 tab PRN Reason: Vomiting Home Medications: Ambulatory Orders Docusate Sodium [Stool Softener] 100 mg PO DAILY 09/15/18 Oxybutynin Chloride 09/15/18 Phenazopyridine HCl [Pyridium] 200 mg PO PRN 09/15/18 Tamsulosin HCl [Flomax] 0.4 mg PO DAILY 09/15/18 Ketorolac Tromethamine [Toradol Tabs] 10 mg PO PRN 09/19/18 Ondansetron [Zofran Odt] 4 mg PO Q4H PRN #10 tab 09/19/18 Additional Instructions: the patient is a 28-year-old male presenting to the emergency room after having had his ureteral stents pulled today. He is having pain primarily on the left. This most likely represents post procedural ureteral spasm. The patient was given doses of pain medications. He does need to increase his fluid intake. He also needs to eat food when he takes his Toradol. He'll be written for Zofran for as needed use for any further nausea. ER warnings were given. Keep follow-up with urology and his primary care doctor.
== END 2018-09-19 17:44 | disposition home or self-care (01) ==
LOC: ER 17:14
DX: N28.89 Other specified disorders of kidney and ureter (principal); R11.2 Nausea with vomiting, unspecified; Z98.890 Other specified postprocedural states; Z87.442 Personal history of urinary calculi; Z87.891 Personal history of nicotine dependence; Z79.899 Other long term (current) drug therapy
CPT/HCPCS: 81001; Q0169

== ENCOUNTER 2018-10-17 09:46 | Emergency (ER) | payer SELFPAY ==
--- NOTE | 2018-10-17 09:59 | ED.PDOC ---
History of Present Illness - General Chief Complaint: General Stated Complaint: wrist pain Time Seen by Provider: 10/17/18 09:57 Source: patient, RN notes reviewed, Vital Signs reviewed Additional Information: 28 YEAR OLD HERE WITH COMPLAINTS OF LEFT WRIST PAIN FOR 2 MONTHS NO TRAUMA PAIN IS OVER THE EXTENSOR POLICIS TENDON PAIN IS WORSE WITH EXTENSION OF THE THUMB AND UPON PALPATION OVERT THE TENDON - History of Present Illness Timing/Duration: constant Severity: moderate Improving Factors: immobilization Worsening Factors: movement Associated Symptoms: denies symptoms Allergies/Adverse Reactions: Allergies NO KNOWN ALLERGY Allergy (Verified 10/17/18 10:02) Home Medications: Ambulatory Orders Docusate Sodium [Stool Softener] 100 mg PO DAILY 09/15/18 Oxybutynin Chloride 09/15/18 Phenazopyridine HCl [Pyridium] 200 mg PO PRN 09/15/18 Tamsulosin HCl [Flomax] 0.4 mg PO DAILY 09/15/18 Ketorolac Tromethamine [Toradol Tabs] 10 mg PO PRN 09/19/18 Ondansetron [Zofran Odt] 4 mg PO Q4H PRN #10 tab 09/19/18 Naproxen [Naprosyn] 500 mg PO Q8HRS #30 tab 10/17/18 Review of Systems - Review of Systems Constitutional: States: no symptoms reported EENTM: States: no symptoms reported Respiratory: States: no symptoms reported Cardiology: States: no symptoms reported Gastrointestinal/Abdominal: States: no symptoms reported Genitourinary: States: no symptoms reported Musculoskeletal: States: see HPI Skin: States: no symptoms reported Neurological: States: no symptoms reported Endocrine: States: no symptoms reported Hematologic/Lymphatic: States: no symptoms reported Past Medical History (General) - Patient Medical History Hx Seizures: No Hx Stroke: No Hx Dementia: No Hx Asthma: No Hx of COPD: No Hx Cardiac Disorders: No Hx Congestive Heart Failure: No Hx Pacemaker: No Hx Hypertension: No Hx Thyroid Disease: No Hx Diabetes: No Hx Gastroesophageal Reflux: No Hx Renal Disease: Yes - kidney stones, stent placement Hx Cancer: No Hx of HIV: No Hx Hepatitis C: No Hx MRSA: No - Vaccination History Hx Tetanus, Diphtheria Vaccination: No Hx Influenza Vaccination: Yes Hx Pneumococcal Vaccination: No - Social History Hx Tobacco Use: Yes Hx Alcohol Use: No Hx Substance Use: Yes - quit xanax and marijuana a month ago, meth a week ago and hydrocodone 4 day Hx Substance Use Treatment: No Hx Depression: No Hx Physical Abuse: No Hx Emotional Abuse: No Family Medical History - Family History Mother Family History: Unknown Hx Family;Other: DAD-kidney stone Physical Exam - Physical Exam General Appearance: Alert, Comfortable Eye Exam: bilateral normal Ears, Nose, Throat: hearing grossly normal, normal ENT inspection, normal pharynx Neck: non-tender, full range of motion, supple Respiratory: chest non-tender, lungs clear, normal breath sounds, no respiratory distress, no accessory muscle use Cardiovascular/Chest: normal peripheral pulses, regular rate, rhythm, no edema, no gallop, no JVD Gastrointestinal/Abdominal: normal bowel sounds, non tender, soft, no organomegaly, no pulsatile mass Extremity: normal range of motion, no pedal edema, no calf tenderness, other - LEFT WRIST DE QUERVAINS TENDINITIS Progress - Results/Orders Results/Orders: 10 30 AM PT WAS GIVEN 40 MG OF DEPOMEDROL WITH 0.5 % MARCAIN IN THE AREA OF THE EXT POLICIS TENDON AT THE WRIST AND WRAPPED WITH CO BAND Departure - Departure Clinical Impression: De Quervain's disease (tenosynovitis) Time of Disposition: 10:50 Disposition: Discharge to Home or Self Care Condition: Good Departure Forms: ED Discharge - Pt. Copy, Patient Portal Self Enrollment Prescriptions: Naproxen [Naprosyn] 500 mg PO Q8HRS #30 tab Home Medications: Ambulatory Orders Docusate Sodium [Stool Softener] 100 mg PO DAILY 09/15/18 Oxybutynin Chloride 09/15/18 Phenazopyridine HCl [Pyridium] 200 mg PO PRN 09/15/18 Tamsulosin HCl [Flomax] 0.4 mg PO DAILY 09/15/18 Ketorolac Tromethamine [Toradol Tabs] 10 mg PO PRN 09/19/18 Ondansetron [Zofran Odt] 4 mg PO Q4H PRN #10 tab 09/19/18 Naproxen [Naprosyn] 500 mg PO Q8HRS #30 tab 10/17/18
[2018-10-17 10:02] VITALS: TEMP 96
[2018-10-17] MEDS ORDERED: BUPIVACAINE 0.5% 30 ML VIAL INJ ONE (10:15)
--- NOTE | 2018-10-17 10:22 | RAD ---
EXAM DESCRIPTION: Left wrist, 2 views CLINICAL HISTORY: PAIN FINDINGS/ IMPRESSION: Normal mineralization. Normal alignment No focal demineralization or inflammatory erosion. No fracture or acute osteochondral lesion. No advanced arthrosis. No diagnostic soft tissue abnormality Electronically signed by: Danilo Moss MD 10/17/2018 10:21 AM [facility]
[2018-10-17] MEDS ORDERED: methylPREDNISolone ACETATE 40 MG/ML VIAL ONE (10:36)
[2018-10-17] MEDS ORDERED: HYDROcodone 5MG/APAP 325MG 1 EA TAB PO ONE (10:43)
[2018-10-17 11:07] VITALS: BP 108/76; O2SAT 100
== END 2018-10-17 11:07 | disposition home or self-care (01) ==
LOC: ER 09:46
DX: M65.4 Radial styloid tenosynovitis [de Quervain] (principal); Z87.891 Personal history of nicotine dependence; Z79.899 Other long term (current) drug therapy
CPT/HCPCS: 73100; J1030